=== PATIENT | male | born 1995 | race African-American/Black ===

== ENCOUNTER 2018-09-18 22:41 | Emergency (ER) | payer MEDICAID, OTHER ==
[2018-09-19] MEDS: HYDROCODONE/APAP (5/325) TAB PO (00:07)
[2018-09-19] MEDS: IBUPROFEN 600 MG TAB PO (00:07)
== END 2018-09-19 01:20 | disposition home or self-care (01) ==
LOC: FTE 09-19 01:20
DX: M54.5 Low back pain (principal)
CPT/HCPCS: 72100; 99283-25